=== PATIENT | male | born 1950 | race Caucasian/White ===

== ENCOUNTER 2022-10-19 11:35 | Emergency (ER) | payer MEDICARE, OTHER ==
[~2022-10-19] VITALS: Ht 167.6 cm; Wt 79.4 kg
[2022-10-19 11:50] LABS: HEMATOCRIT 40.2 % (36.7-47.1); MEAN CORPUSCULAR HEMOGLOBIN 28.5 uug (23.8-33.4); MEAN CORPUSCULAR VOLUME 87.1 fL (73.0-96.2); PLATELET COUNT (AUTO) 167 K/uL (152-348)
[2022-10-19] MEDS ORDERED: ACET325T53 PO (12:03)
[2022-10-19 12:07] LABS: CARBON DIOXIDE 31 mmol/L (21-32); CHLORIDE 87 mmol/L (98-107); CREATININE 5.4 mg/dL (0.6-1.3); GLUCOSE 182 mg/dL (74-106); POTASSIUM 3.7 mmol/L (3.5-5.1); UREA NITROGEN, BLOOD 32 mg/dL (7-18)
[2022-10-19] MEDS ORDERED: LEVO50TA PO (12:10)
[2022-10-19] MEDS ORDERED: ASCO500T10 PO (12:10)
[2022-10-19] MEDS ORDERED: BISA-79 PO (12:10)
[2022-10-19] MEDS ORDERED: DOCU-141 PO (12:10)
[2022-10-19] MEDS ORDERED: PANT40TA2 PO (12:10)
[2022-10-19] MEDS ORDERED: SEVE800T8 PO (12:10)
[2022-10-19] MEDS ORDERED: FOLI1TAB34 PO (12:10)
[2022-10-19] MEDS ORDERED: SENN-261 PO (12:10)
[2022-10-19] MEDS ORDERED: CARV25TA2 PO (12:10)
[2022-10-19] MEDS ORDERED: HYDR-3980 PO (12:10)
[2022-10-19] MEDS ORDERED: INSU100V28 (12:10)
[2022-10-19] MEDS ORDERED: ATOR40TA PO (12:10)
[2022-10-19] MEDS ORDERED: ISOS60TA72 PO (12:10)
[2022-10-19] MEDS ORDERED: MAGN400O6 PO (12:10)
--- NOTE | 2022-10-19 13:30 | NUR ---
Pt arrived in the ED d/t elevated blood pressure from the dialysis center after completing dialysis. Seen by DANGELO for MSE.
--- NOTE | 2022-10-19 15:35 | NUR ---
PT WAS D/C'd BY DR AYON. D/C INSTRUCTIONS GIVEN TO THE PT BY DR AYON. [facility] WAS CALLED TO TRANSFER PT TO "[facility]". ETA IS 40 MINUTES.
[2022-10-19] MEDS ORDERED: hydrALAZINE HCL 20 MG/1 ML VIAL ONE (16:13)
[2022-10-19] MEDS ORDERED: hydrALAZINE HCL 20 MG/1 ML VIAL IV ONE (16:15)
--- NOTE | 2022-10-19 16:21 | NUR ---
[facility] arrived to pick-up pt to be transported back to [facility]. Pt has elevated BP = 180/77, administered 10mg of Hydralazine.
--- NOTE | 2022-10-19 16:47 | NUR ---
Patient discharged to [facility] via private ambulance, [facility], in stable condition. Written and verbal after care instructions given. Patient verbalizes understanding of instructions. Stressed follow up or return to ER for worsening s/s.
[2022-10-19 16:48] VITALS: BP 144/77
== END 2022-10-19 16:45 ==
LOC: ER 11:35
DX: R00.2 Palpitations (principal); I12.0 Hypertensive chronic kidney disease with stage 5 chronic kidney disease or end stage renal disease; E11.22 Type 2 diabetes mellitus with diabetic chronic kidney disease; N18.6 End stage renal disease; Z99.2 Dependence on renal dialysis; Z79.4 Long term (current) use of insulin; E11.65 Type 2 diabetes mellitus with hyperglycemia; E87.1 Hypo-osmolality and hyponatremia; E78.5 Hyperlipidemia, unspecified; Z89.512 Acquired absence of left leg below knee
CPT/HCPCS: 99285; 96374; 71045; 80048; 85025; 84484 ×2; 36415; 93005; J0360; A4663